=== PATIENT | female | born 1970 | race Two or more races ===

== ENCOUNTER 2018-01-20 00:41 | Emergency (ER) | payer SELFPAY ==
[2018-01-20] MEDS ORDERED: Ondansetron 4 MG/2 ML SDV IVPUSH ONE (01:07)
[2018-01-20] MEDS ORDERED: Sodium Chloride 0.9% 2.5 ML Syringe FLUSH PRN (01:07)
[2018-01-20] MEDS ORDERED: Morphine 2 MG/ML Syringe IVPUSH ONE (01:07)
[2018-01-20] MEDS ORDERED: Sodium Chloride 0.9% 1,000 ML IV ONE (01:07)
[2018-01-20] MEDS ORDERED: Sodium Chloride 0.9% 10 ML Syringe FLUSH PRN (01:07)
[2018-01-20] MEDS ORDERED: Ketorolac 30 MG/ML SDV IVPUSH ONE (01:07)
--- NOTE | 2018-01-20 01:11 | EDM.PDOC ---
ED HPI GENERAL MEDICAL PROBLEM - General Chief Complaint: Abdominal Pain Stated Complaint: ABDOMINAL PAIN Time Seen by Provider: 01/20/18 00:54 - History of Present Illness INITIAL COMMENTS - FREE TEXT/NARRATIVE: HISTORY AND PHYSICAL: History of present illness: The patient is a 47-year-old female whose only abdominal surgical history is of a bilateral tubal ligation and presents this morning with complaints of left lower abdominal pain that started yesterday and has now progressed to bilateral lower abdominal pain. The patient says she currently started her period about a day and a half ago and she usually does get cramping and pain with that but this is different. She has no upper abdominal pain but feels very bloated and she's had nausea but no vomiting. She has taken some ibuprofen for this pain and presents for evaluation. She has no fevers with this no discrete flank pain but does say that she has had some pain with urination for the last couple of days. She has seen some flecks of blood but no jesus hematuria. She has had normal bowel movements but the last bowel movement being yesterday and they're not black or bloody or diarrhea. She says the pain started gradually and then intensified and then spread from the left side to bilateral lower abdomen. She' s never had any issues with problems in the past. She has no lower back pain no chest pain or shortness of breath and no upper respiratory symptoms. Patient is here with her Review of systems: As per history of present illness and below otherwise all systems reviewed and negative. Past medical history: As per history of present illness and as reviewed below otherwise noncontributory. Surgical history: As per history of present illness and as reviewed below otherwise noncontributory. Social history: No reported history of drug or alcohol abuse. Family history: As per history of present illness and as reviewed below otherwise noncontributory. Physical exam: General: Well-developed well-nourished overweight female who is nontoxic and vital signs are noted by me. She looks uncomfortable with movement in the room as well as transfer from wheelchair to bed. HEENT: Atraumatic, normocephalic, negative for conjunctival pallor or scleral icterus, mucous membranes moist, throat clear, neck supple, nontender, trachea midline. Lungs: Clear to auscultation, breath sounds equal bilaterally, chest nontender. Heart: S1S2, regular rate and rhythm no overt murmurs Abdomen: Soft, nondistended, there is no discrete tympany on percussion and bowel sounds are hypoactive. There is diffuse tenderness throughout the abdomen but it is more localized in the left lower quadrant with some voluntary guarding but no rebound or involuntary guarding. With movement of the patient she seems to be uncomfortable. Negative for masses or hepatosplenomegaly. Negative for costovertebral tenderness. Pelvis: Stable nontender. Genitourinary: Deferred. Rectal: Deferred. Extremities: Atraumatic, negative for cords or calf pain. Neurovascular unremarkable. Neuro: Awake, alert, oriented. Cranial nerves II through XII unremarkable. Cerebellum unremarkable. Motor and sensory unremarkable throughout. Exam nonfocal. Diagnostics: CBC CMP amylase lipase hCG UA urine culture if indicated lactic acid CT scan of the abdomen and pelvis Therapeutics: IV fluids Zofran Toradol morphine Dilaudid UA results were reviewed and a urine culture was added. The patient is on her menstrual cycle which likely explains the blood. 0300: CT scan and labs results were discussed with Dr. Kennedy our car rental sales assistant on-call and she says that she needs to see this patient in the clinic for a fibroid workup and due to the patient's age and the significant amount of pain she may merit surgery going forward but she would like to have a dialogue with this patient. The patient is aware of these testing results and her is as well. She now tells me that her periods have progressively been getting heavier and more discomforting than usual. I told her that we would give her antibiotics for her UTI as well as medications for pain and she would need to call the clinic tomorrow for follow-up. Impression: Lower abdominal pain, enlarged fibroid uterus, UTI Definitive disposition and diagnosis as appropriate pending reevaluation and review of above. abdominal Pain Score (Numeric/FACES): 10 - Related Data Allergies Allergy/AdvReac Type Severity Reaction Status Date / Time No Known Allergies Allergy Verified 01/20/18 00:59 Home Meds: Home Meds . [No Known Home Meds] 01/20/18 [History] Past Medical History Genitourinary History: Reports: None SHOP TECH History: Reports: - Past Surgical History Female Surgical History: Reports: Tubal Ligation Social & Family History - Family History Family Medical History: Noncontributory - Tobacco Use Smoking Status *Q: Current Every Day Smoker Years of Tobacco use: 18 Packs/Tins Daily: 1 - Caffeine Use Caffeine Use: Reports: None - Recreational Drug Use Recreational Drug Use: No ED ROS GENERAL - Review of Systems Review Of Systems: ROS reveals no pertinent complaints other than HPI. ED EXAM, GENERAL - Physical Exam Exam: See Below (see Dictation) Course - Vital Signs Last Recorded V/S: Last Vital Signs Temp 36.6 C 01/20/18 00:54 Pulse 98 01/20/18 00:54 Resp 18 01/20/18 00:54 BP 119/76 01/20/18 00:54 Pulse Ox 94 L 01/20/18 00:54 - Orders/Labs/Meds Orders: Active Orders 24 hr Category Date Time Status Abdomen Pelvis w Cont [CT] Stat Exams 01/20/18 01:07 Taken CULTURE URINE [RM] Stat Lab 01/20/18 01:15 Received Sodium Chloride 0.9% [Saline Flush] Med 01/20/18 01:07 Active 10 ml FLUSH ASDIRECTED PRN Sodium Chloride 0.9% [Saline Flush] Med 01/20/18 01:07 Active 2.5 ml FLUSH ASDIRECTED PRN Saline Lock Insert [OM.PC] Stat Oth 01/20/18 01:06 Ordered Medication Orders Sodium Chloride (Saline Flush) 10 ml FLUSH ASDIRECTED PRN PRN Reason: Keep Vein Open Sodium Chloride (Saline Flush) 2.5 ml FLUSH ASDIRECTED PRN PRN Reason: Keep Vein Open Labs: Laboratory Tests 01/20/18 01/20/18 01/20/18 Range/Units 01:05 01:05 01:05 WBC 14.83 H (4.0-11.0) K/uL RBC 4.20 L (4.30-5.90) M/uL Hgb 12.5 (12.0-16.0) g/dL Hct 36.8 (36.0-46.0) % MCV 87.6 (80.0-98.0) fL MCH 29.8 (27.0-32.0) pg MCHC 34.0 (31.0-37.0) g/dL RDW Std Deviation 44.8 (28.0-62.0) fl RDW Coeff of Kami 14 (11.0-15.0) % Plt Count 304 (150-400) K/uL MPV 10.40 (7.40-12.00) fL Neut % (Auto) 81.7 H (48.0-80.0) % Lymph % (Auto) 10.0 L (16.0-40.0) % Wirt % (Auto) 7.3 (0.0-15.0) % Eos % (Auto) 0.9 (0.0-7.0) % Baso % (Auto) 0.1 (0.0-1.5) % Neut # (Auto) 12.1 H (1.4-5.7) K/uL Lymph # (Auto) 1.5 (0.6-2.4) K/uL Wirt # (Auto) 1.1 H (0.0-0.8) K/uL Eos # (Auto) 0.1 (0.0-0.7) K/uL Baso # (Auto) 0.0 (0.0-0.1) K/uL Lactate 0.8 (0.20-2.00) mmol/L Sodium 137 (136-145) mmol/L Potassium 3.6 (3.5-5.1) mmol/L Chloride 104 (98-107) mmol/L Carbon Dioxide 22.5 (21.0-32.0) mmol/L BUN 9 (7.0-18.0) mg/dL Creatinine 0.6 (0.6-1.0) mg/dL Est Cr Clr Drug Dosing TNP Estimated GFR (MDRD) > 60.0 ml/min Glucose 124 H (74-106) mg/dL Calcium 8.6 (8.5-10.1) mg/dL Total Bilirubin 0.3 (0.2-1.0) mg/dL AST 12 L (15-37) IU/L ALT 17 (14-63) IU/L Alkaline Phosphatase 67 (46-116) U/L Total Protein 7.8 (6.4-8.2) g/dL Albumin 3.3 L (3.4-5.0) g/dL Globulin 4.5 H (2.0-3.5) g/dL Albumin/Globulin Ratio 0.7 L (1.3-2.8) Amylase 45 (25-115) U/L Lipase 91 (73-393) U/L HCG, Qual (NEG) Urine Color Urine Appearance Urine pH (5.0-8.0) Ur Specific [place] (1.001-1.035) Urine Protein (NEGATIVE) mg/dL Urine Glucose (UA) (NEGATIVE) mg/dL Urine Ketones (NEGATIVE) mg/dL Urine Occult Blood (NEGATIVE) Urine Nitrite (NEGATIVE) Urine Bilirubin (NEGATIVE) Urine Urobilinogen (<2.0) EU/dL Ur Leukocyte Esterase (NEGATIVE) Urine RBC (0-2/HPF) Urine WBC (0-5/HPF) Ur Epithelial Cells (NONE-FEW) Urine Bacteria (NEGATIVE) 01/20/18 01/20/18 Range/Units 01:05 01:15 WBC (4.0-11.0) K/uL RBC (4.30-5.90) M/uL Hgb (12.0-16.0) g/dL Hct (36.0-46.0) % MCV (80.0-98.0) fL MCH (27.0-32.0) pg MCHC (31.0-37.0) g/dL RDW Std Deviation (28.0-62.0) fl RDW Coeff of Kami (11.0-15.0) % Plt Count (150-400) K/uL MPV (7.40-12.00) fL Neut % (Auto) (48.0-80.0) % Lymph % (Auto) (16.0-40.0) % Wirt % (Auto) (0.0-15.0) % Eos % (Auto) (0.0-7.0) % Baso % (Auto) (0.0-1.5) % Neut # (Auto) (1.4-5.7) K/uL Lymph # (Auto) (0.6-2.4) K/uL Wirt # (Auto) (0.0-0.8) K/uL Eos # (Auto) (0.0-0.7) K/uL Baso # (Auto) (0.0-0.1) K/uL Lactate (0.20-2.00) mmol/L Sodium (136-145) mmol/L Potassium (3.5-5.1) mmol/L Chloride (98-107) mmol/L Carbon Dioxide (21.0-32.0) mmol/L BUN (7.0-18.0) mg/dL Creatinine (0.6-1.0) mg/dL Est Cr Clr Drug Dosing Estimated GFR (MDRD) ml/min Glucose (74-106) mg/dL Calcium (8.5-10.1) mg/dL Total Bilirubin (0.2-1.0) mg/dL AST (15-37) IU/L ALT (14-63) IU/L Alkaline Phosphatase (46-116) U/L Total Protein (6.4-8.2) g/dL Albumin (3.4-5.0) g/dL Globulin (2.0-3.5) g/dL Albumin/Globulin Ratio (1.3-2.8) Amylase (25-115) U/L Lipase (73-393) U/L HCG, Qual NEGATIVE (NEG) Urine Color YELLOW Urine Appearance HAZY Urine pH 7.0 (5.0-8.0) Ur Specific [place] <= 1.005 (1.001-1.035) Urine Protein NEGATIVE (NEGATIVE) mg/dL Urine Glucose (UA) NEGATIVE (NEGATIVE) mg/dL Urine Ketones NEGATIVE (NEGATIVE) mg/dL Urine Occult Blood MODERATE (NEGATIVE) Urine Nitrite NEGATIVE (NEGATIVE) Urine Bilirubin NEGATIVE (NEGATIVE) Urine Urobilinogen 0.2 (<2.0) EU/dL Ur Leukocyte Esterase LARGE (NEGATIVE) Urine RBC 2-4 (0-2/HPF) Urine WBC 40-45 (0-5/HPF) Ur Epithelial Cells MODERATE (NONE-FEW) Urine Bacteria FEW (NEGATIVE) Meds: Medications Generic Name Dose Route Start Last Admin Trade Name Freq PRN Reason Stop Dose Admin Sodium Chloride 10 ml 01/20/18 01:07 Saline Flush FLUSH ASDIRECTED PRN Keep Vein Open Sodium Chloride 2.5 ml 01/20/18 01:07 Saline Flush FLUSH ASDIRECTED PRN Keep Vein Open Discontinued Medications Generic Name Dose Route Start Last Admin Trade Name Freq PRN Reason Stop Dose Admin Hydromorphone HCl 1 mg 01/20/18 02:19 01/20/18 02:26 Dilaudid IVPUSH 01/20/18 02:20 1 mg ONETIME ONE Administration Sodium Chloride 1,000 mls @ 999 mls/hr 01/20/18 01:07 01/20/18 01:21 Normal Saline IV 01/20/18 02:07 999 mls/hr STAT ONE Administration Iopamidol 100 ml 01/20/18 02:20 01/20/18 02:20 Isovue-370 (76%) IVPUSH 01/20/18 02:21 100 ml ONETIME STA Administration Ketorolac Tromethamine 30 mg 01/20/18 01:07 01/20/18 01:22 Toradol IVPUSH 01/20/18 01:08 30 mg ONETIME ONE Administration Morphine Sulfate 4 mg 01/20/18 01:07 01/20/18 01:23 Morphine IVPUSH 01/20/18 01:08 4 mg ONETIME ONE Administration Ondansetron HCl 4 mg 01/20/18 01:07 01/20/18 01:21 Zofran IVPUSH 01/20/18 01:08 4 mg ONETIME ONE Administration Departure - Departure Time of Disposition: 03:08 Disposition: Home, Self-Care 01 Condition: Good Clinical Impression: Fibroid uterus Qualifiers: Uterine leiomyoma location: unspecified location Qualified Code(s): D25.9 - Leiomyoma of uterus, unspecified UTI (urinary tract infection) Qualifiers: Urinary tract infection type: site unspecified Hematuria presence: without hematuria Qualified Code(s): N39.0 - Urinary tract infection, site not specified - Discharge Information Referrals: PCP,None [Primary Care Provider] - Forms: ED Department Discharge Additional Instructions: The following information is given to patients seen in the emergency department who are being discharged to home. This information is to outline your options for follow-up care. We provide all patients seen in our emergency department with a follow-up referral. The need for follow-up, as well as the timing and circumstances, are variable depending upon the specifics of your emergency department visit. If you don't have a primary care physician on staff, we will provide you with a referral. We always advise you to contact your personal physician following an emergency department visit to inform them of the circumstance of the visit and for follow-up with them and/or the need for any referrals to a consulting specialist. The emergency department will also refer you to a specialist when appropriate. This referral assures that you have the opportunity for followup care with a specialist. All of these measure are taken in an effort to provide you with optimal care, which includes your followup. Under all circumstances we always encourage you to contact your private physician who remains a resource for coordinating your care. When calling for followup care, please make the office aware that this follow-up is from your recent emergency room visit. If for any reason you are refused follow-up, please contact the [facility] emergency department at and ask to speak to the emergency department charge nurse. [facility] [address] [address] Please take antibiotics as prescribed and use medications for pain as needed and as directed. Please call the clinic in the morning to schedule a follow-up appointment as Dr. Kennedy was made aware of view and has urinated. Push hydration and rest. Return to ER as needed and as discussed. You will need more workup in the clinic and you can have a dialogue and discussion about options for this enlarged uterus and fibroids of the uterus going forward with your provider. - My Orders Last 24 Hours: My Active Orders 01/20/18 01:06 Saline Lock Insert [OM.PC] Stat 01/20/18 01:07 Abdomen Pelvis w Cont [CT] Stat Sodium Chloride 0.9% [Saline Flush] 10 ml FLUSH ASDIRECTED PRN Sodium Chloride 0.9% [Saline Flush] 2.5 ml FLUSH ASDIRECTED PRN 01/20/18 01:15 CULTURE URINE [RM] Stat - Assessment/Plan Last 24 Hours: My Active Orders 01/20/18 01:06 Saline Lock Insert [OM.PC] Stat 01/20/18 01:07 Abdomen Pelvis w Cont [CT] Stat Sodium Chloride 0.9% [Saline Flush] 10 ml FLUSH ASDIRECTED PRN Sodium Chloride 0.9% [Saline Flush] 2.5 ml FLUSH ASDIRECTED PRN 01/20/18 01:15 CULTURE URINE [RM] Stat
[2018-01-20 01:33] LABS: CHLORIDE,CL 104 mmol/L (98-107); SODIUM,NA 137 mmol/L (136-145)
[2018-01-20] MEDS ORDERED: HYDROmorphone 1 MG/ML Syringe IVPUSH ONE (02:19)
[2018-01-20] MEDS ORDERED: Iopamidol 755 Mg/ML 100 ML Bottle IVPUSH STA (02:20)
[2018-01-20] MEDS ORDERED: Levofloxacin 500 MG Tab PO ONE (03:10)
--- NOTE | 2018-01-21 13:31 | CT ---
EXAM DATE: 01/20/18 PATIENT'S AGE: 47 Patient: CHARIYT HERNANDEZ Facility: [place], [place] Site . Site : [id number] Study: CT Abdomen/Pelvis w cyril [id number]/[id number] 2:18:23 AM Ordering Physician: Chance Franklin Final Report: INDICATION: Left lower quadrant pain beginning yesterday. Nausea. COMPARISON: None available. TECHNIQUE: CT examination of the abdomen and pelvis was performed with the uneventful intravenous administration of 100 cc of Isovue 370 while 3 mm thick axial sections were obtained from the lung bases through the pubic symphysis. Oral contrast was not administered. Please note that all CT scans at this facility use dose modulation, iterative reconstruction, and/or weight-based dosing when appropriate to reduce radiation dose to as low as reasonably achievable. FINDINGS: In the abdomen, the liver, spleen, pancreas, and adrenals are normal in appearance. The kidneys are normal in appearance. The gallbladder is normal in appearance. The abdominal aorta is normal in caliber with no sign of dilatation. There is no sign of retroperitoneal mass or adenopathy. The stomach, loops of small bowel, and colon in the abdomen are normal in appearance. In the pelvis, the appendix is normal in appearance with no sign of inflammatory process.. There is massive heterogeneous enlargement of the uterus, with numerous heterogeneous, exophytic, high-density masses consistent with numerous fibroids. A few punctate calcifications are seen in the exophytic fibroid projecting superiorly and laterally to the left. The uterus measures 13.2 x 16.9 x 7.8 centimeters. The right ovary has a small cyst measuring 1.5 centimeters in diameter. I cannot definitely identify the left ovary. The sigmoid colon is prominently displaced toward the right by the enlarged uterus and is moderately flattened. There is no sign of obstruction of the colon. The loops of small bowel are displaced superiorly from the pelvis by the prominently enlarged uterus. The urinary bladder is normal in appearance. There is no sign of pelvic or inguinal mass or adenopathy. The lung bases are clear. The osseous structures are normal in appearance for the patient`s age. IMPRESSION: NORMAL CT OF THE ABDOMEN WITH CONTRAST. CT OF THE PELVIS SHOWS PROMINENT, LOBULAR, HETEROGENEOUS ENLARGEMENT OF THE UTERUS FROM NUMEROUS FIBROIDS. THE UTERUS MEASURES 13.2 X 16.9 X 7.8 CENTIMETERS. THE UTERUS IS MODERATELY FLATTENS THE SIGMOID COLON IN THE RIGHT LOWER PELVIS, BUT DOES NOT RESULT IN OBSTRUCTION. SMALL SIMPLE CYST IN THE RIGHT OVARY. I CANNOT DEFINITELY IDENTIFY THE LEFT OVARY. Please note that all CT scans at this facility use dose modulation, iterative reconstruction, and/or weight-based dosing when appropriate to reduce radiation dose to as low as reasonably achievable. Dictated by Fernando Boogie MD @ Jan 20 2018 2:37AM (Electronic Signature) Report Signed by Proxy. MTDD
== END 2018-01-20 03:29 | disposition home or self-care (01) ==
LOC: MW.ED 00:41
DX: D25.9 Leiomyoma of uterus, unspecified (principal); N39.0 Urinary tract infection, site not specified; F17.210 Nicotine dependence, cigarettes, uncomplicated
CPT/HCPCS: 36415; 74177; 80053; 81001; 82150; 83605; 83690; 84703; 85025; 87086; 96361; 96374; 96375; 99284; A9270; J1170; J1885; J2270; J2405; J7040; Q9967

== ENCOUNTER 2021-12-31 14:15 | Emergency (ER) | payer OTHER ==
[2021-12-31] MEDS ORDERED: Ketorolac 60 MG/2 ML SDV IM ONE (15:25)
[2021-12-31] MEDS ORDERED: Orphenadrine 60 MG/2 ML Inj IM ONE (15:26)
[2021-12-31 16:39] LABS: CARBON DIOXIDE,CO2 27.5 mmol/L (21.0-32.0); POTASSIUM,K 3.7 mmol/L (3.5-5.1)
== END 2021-12-31 17:46 | disposition home or self-care (01) ==
LOC: MW.ED 14:15
DX: S20.212A Contusion of left front wall of thorax, initial encounter (principal); S60.051A Contusion of right little finger without damage to nail, initial encounter; S80.02XA Contusion of left knee, initial encounter; S90.31XA Contusion of right foot, initial encounter; S10.91XA Abrasion of unspecified part of neck, initial encounter; V49.40XA Driver injured in collision with unspecified motor vehicles in traffic accident, initial encounter; Y92.410 Unspecified street and highway as the place of occurrence of the external cause
CPT/HCPCS: 36415; 71046; 73140; 73630; 80053; 84484; 85025; 93005; 96372; 99284; J1885; J2360; 93010

== ENCOUNTER 2023-03-19 11:08 | Day surgery (SDC) | payer BC, OTHER ==
[~2023-03-19 11:08] MED LIST: Lactated Ringers 1,000 ML IV SCH; Sodium Chloride 0.9% 10 ML Syringe FLUSH PRN; Sodium Chloride 0.9% 2.5 ML Syringe FLUSH PRN; Sodium Chloride 0.9% 20 ML SDV IV PRN
[2023-03-19] MEDS ORDERED: propofoL 50 ML ONE (11:20)
[2023-03-19] MEDS ORDERED: Lidocaine 2% 5 ML SDV ONE (12:26)
[2023-03-19] MEDS ORDERED: Propofol 200 MG/20 ML SDV ONE (12:50)
== END 2023-03-19 14:10 | disposition home or self-care (01) ==
LOC: MW.SDS 11:08
PROVIDERS: ATTEND Surgery
DX: K29.50 Unspecified chronic gastritis without bleeding (principal); B96.81 Helicobacter pylori [H. pylori] as the cause of diseases classified elsewhere; E66.9 Obesity, unspecified; Z68.37 Body mass index [BMI] 37.0-37.9, adult; Z90.710 Acquired absence of both cervix and uterus; Z87.891 Personal history of nicotine dependence; Z79.899 Other long term (current) drug therapy
CPT/HCPCS: 43239; 45378; J2704; J7120; 00813; J3490

== ENCOUNTER 2023-04-23 08:36 | Day surgery (SDC) | payer BC ==
[~2023-04-23 08:36] MED LIST changes: +Albuterol 0.083% 2.5 MG/3 ML Neb Soln NEB PRN; +Metoclopramide 10 MG/2 ML SDV IVPUSH PRN; +Morphine 2 MG/ML SYRINGE IVPUSH PRN; +Naloxone 0.4 MG/ML SDV IVPUSH PRN; +Ondansetron 4 MG/2 ML SDV IVPUSH PRN; +ceFAZolin 2 GM in Sodium Chloride 0.9% 50 ML IV ONE; +droPERidol 5 MG/2 ML SDV IVPUSH PRN; +fentaNYL 50 MCG/ML SDV IVPUSH PRN
[2023-04-23] MEDS ORDERED: Scopalamine 1mg/3day Transdermal Patch ONE (08:59)
[2023-04-23] MEDS ORDERED: Bupivacaine 0.25% 30 ML SDV ONE (09:25)
[2023-04-23] MEDS ORDERED: Ropivacaine 0.5% 5 MG/ML 30 ML SDV ONE (09:25)
[2023-04-23] MEDS ORDERED: Propofol 200 MG/20 ML SDV ONE (09:27)
[2023-04-23] MEDS ORDERED: Dexamethasone 4 MG/ML 5 ML MDV ONE (09:27)
[2023-04-23] MEDS ORDERED: fentaNYL 100 MCG/2 ML SDV ONE (09:27)
[2023-04-23] MEDS ORDERED: Sugammadex Sodium 200 MG/2 ML VIAL ONE (09:27)
[2023-04-23] MEDS ORDERED: Lidocaine 2% 5 ML SDV ONE (09:27)
[2023-04-23] MEDS ORDERED: Rocuronium Bromide 50 MG/5 ML Syringe ONE (09:27)
[2023-04-23] MEDS ORDERED: Ketorolac 30 MG/ML SDV ONE (09:27)
[2023-04-23] MEDS ORDERED: Ondansetron 4 MG/2 ML SDV ONE (09:27)
[2023-04-23] MEDS ORDERED: Bupivacaine 0.5% 30 ML SDV ONE (10:05)
[2023-04-23] MEDS ORDERED: Scopalamine 1mg/3day Transdermal Patch TOP ONE (10:06)
[2023-04-23] MEDS ORDERED: ceFAZolin 1 GM Vial ONE (10:09)
[2023-04-23] MEDS: HYDROmorphone 1 MG/ML Syringe IVPUSH PRN ×3 (11:55→12:15)
== END 2023-04-23 15:00 | disposition home or self-care (01) ==
LOC: MW.SDS 08:36
PROVIDERS: ATTEND Surgery
DX: K80.10 Calculus of gallbladder with chronic cholecystitis without obstruction (principal); A04.8 Other specified bacterial intestinal infections; E66.9 Obesity, unspecified; Z68.37 Body mass index [BMI] 37.0-37.9, adult; Z87.891 Personal history of nicotine dependence
CPT/HCPCS: 00790; 64488; A9270-GY; J0131; J0665; J0690; J1100; J1170; J1885; J2405; J2704; J2795; J3010; J3490; J7120

== ENCOUNTER → 2023-08-13 | Day surgery (SDC) | payer BC ==
[~2023-08-13] MED LIST changes: +Bupivacaine 0.25% 10 ML SDV ONE; +Bupivacaine 0.5% 30 ML SDV ONE; +Dexamethasone 4 MG/ML 5 ML MDV ONE; +HYDROmorphone 1 MG/ML Syringe IVPUSH PRN; +Ketorolac 30 MG/ML SDV ONE; -Lactated Ringers 1,000 ML IV SCH; +Lidocaine 2% 5 ML SDV ONE; +Magnesium Sulfate (4.06 MEQ/ML) 5 GM/10 ML SDV ONE; +Ondansetron 4 MG/2 ML SDV ONE; +Propofol 200 MG/20 ML SDV ONE; +Rocuronium Bromide 50 MG/5 ML Syringe ONE; +Ropivacaine 0.5% 5 MG/ML 30 ML SDV ONE; +Sugammadex Sodium 200 MG/2 ML VIAL IV ONE; +ceFAZolin 2 GM Vial ONE; +dexmedeTOMIDine HCl 200 MCG/2 ML SDV ONE; +fentaNYL 100 MCG/2 ML SDV ONE
[2023-08-13] MEDS: Lactated Ringers 1,000 ML IV SCH (09:24)
[2023-08-13] MEDS: Scopalamine 1mg/3day Transdermal Patch TOP ONE (09:24)
== END | disposition home or self-care (01) ==
LOC: MW.SDS 08:28
PROVIDERS: ATTEND Surgery
DX: D24.1 Benign neoplasm of right breast (principal); A04.8 Other specified bacterial intestinal infections; R25.2 Cramp and spasm; R73.03 Prediabetes; K80.20 Calculus of gallbladder without cholecystitis without obstruction; N39.0 Urinary tract infection, site not specified; M25.511 Pain in right shoulder; E66.9 Obesity, unspecified; Z68.37 Body mass index [BMI] 37.0-37.9, adult; Z79.899 Other long term (current) drug therapy; Z98.890 Other specified postprocedural states; Z87.891 Personal history of nicotine dependence
CPT/HCPCS: 19120; 64999; A9270; J0131; J0665; J0690; J1100; J1885; J2405; J2704; J2795; J3010; J3475; J3490; J7120; 00400; 64461

== ENCOUNTER 2025-01-25 16:53 | Emergency (ER) | payer BC | END 2025-01-25 19:44 | disposition home or self-care (01) | LOC: MW.ED 16:53 | DX: I83.811 Varicose veins of right lower extremity with pain (principal); Z75.3 Unavailability and inaccessibility of health-care facilities; Z79.899 Other long term (current) drug therapy | CPT/HCPCS: 93971-26-RT; 93971-RT; 99283 ==